=== PATIENT | male | born 1965 | race Caucasian/White ===

== ENCOUNTER 2020-05-31 09:22 | Observation (INO) | payer MEDICARE ==
[~2020-05-31] VITALS: Ht 193 cm; Wt 101.3 kg
[2020-05-31 09:44] VITALS: BP 161/117
[2020-05-31] MEDS ORDERED: [UNRECOGNIZED DRUG - CODE] PO (09:53)
[2020-05-31] MEDS ORDERED: SODIUM CHLORIDE 0.9% 1,000 ML IV SCH (10:00)
[2020-05-31] MEDS ORDERED: DIPHENHYDRAMINE 50 MG/ML, 1ML IVPush ONE (10:00)
[2020-05-31] MEDS ORDERED: ROSU20TA2 PO (10:01)
[2020-05-31] MEDS ORDERED: METF500T17 PO (10:01)
[2020-05-31] MEDS ORDERED: TELM40TA PO (10:01)
[2020-05-31] MEDS ORDERED: LORA-445 PO (10:01)
[2020-05-31] MEDS ORDERED: NITR0.4T28 SL (10:01)
[2020-05-31] MEDS ORDERED: ALBU8.5H8 INH (10:01)
[2020-05-31] MEDS ORDERED: ASPI81TA45 PO (10:01)
[2020-05-31] MEDS ORDERED: BISO5TAB8 PO (10:01)
[2020-05-31] MEDS ORDERED: CYCL10TA2 PO (10:01)
[2020-05-31] MEDS ORDERED: FENTANYL PF 100 MCG/2ML ONE (11:51)
[2020-05-31] MEDS ORDERED: HEPARIN 1,000 UNITS/ML, 10ML ONE (11:52)
[2020-05-31] MEDS ORDERED: VERAPAMIL 2.5 MG/ML, 2ML ONE (11:52)
[2020-05-31] MEDS ORDERED: LIDOCAINE-MPF 1%, 5ML ONE (11:52)
[2020-05-31] MEDS ORDERED: TICAGRELOR 90 MG TABLET ONE (11:52)
[2020-05-31] MEDS ORDERED: BIVALIRUDIN 250 MG ONE ×2 (11:52→12:20)
[2020-05-31] MEDS ORDERED: MIDAZOLAM 1 MG/ML, 5ML ONE (11:52)
[2020-05-31] MEDS ORDERED: CYCLOBENZAPRINE 10 MG TABLET PO PRN (13:00)
[2020-05-31] MEDS ORDERED: LORazepam 0.5MG TABLET PO PRN (13:00)
[2020-05-31] MEDS ORDERED: HYDROCODONE PO PRN (13:00)
[2020-05-31] MEDS ORDERED: ALBUTEROL HFA 90 MCG/SPRAY INH PRN (13:00)
[2020-05-31] MEDS ORDERED: IBUPROFEN PO PRN (13:00)
[2020-05-31] MEDS: SODIUM CHLORIDE 0.9% 1,000 ML IV SCH ×2 (13:00→20:36)
[2020-05-31] MEDS: HYDROCODONE PO PRN ×2 (15:03→20:35)
[2020-05-31] MEDS: IBUPROFEN PO PRN ×2 (15:03→20:35)
[2020-05-31 20:00] VITALS: BP 142/92
[2020-05-31] MEDS: TICAGRELOR 90 MG TABLET PO SCH (20:36)
[2020-05-31] MEDS ORDERED: TEMPLATE NON-FORMULARY MED. (Rosuvastatin Calcium** (Crestor**) 20 MG) PO SCH (21:00)
[2020-06-01] MEDS: IBUPROFEN PO PRN ×2 (01:19→09:10)
[2020-06-01] MEDS: HYDROCODONE PO PRN ×2 (01:19→09:10)
[2020-06-01 01:56] VITALS: BP 132/76
[2020-06-01] MEDS: SODIUM CHLORIDE 0.9% 1,000 ML IV SCH (05:00)
[2020-06-01 05:01] LABS: ANION GAP 5 mmol/L (5-15); CALCIUM 8.9 mg/dL (8.5-10.1); CHLORIDE 109 mmol/L (98-107); CREATININE 1.07 mg/dL (0.7-1.3)
[2020-06-01 06:40] VITALS: BP 125/75
[2020-06-01] MEDS ORDERED: TICA90TA PO (08:26)
[2020-06-01] MEDS ORDERED: TELMISARTAN 40 MG PO SCH (09:00)
[2020-06-01] MEDS ORDERED: BISOPROLOL FUMARATE 10 MG PO SCH (09:00)
[2020-06-01] MEDS ORDERED: metFORMIN 500 MG TABLET PO SCH (09:00)
[2020-06-01] MEDS ORDERED: ASPIRIN 81 MG TABLET EC PO SCH (09:00)
[2020-06-01] MEDS: TICAGRELOR 90 MG TABLET PO SCH (09:09)
== END 2020-06-01 10:15 | disposition home or self-care (01) ==
LOC: CACL 09:22 → 5SO 12:49 → CACL 22:09 → DCLOUNGE 06-01 10:06
PROVIDERS: ADMIT Internal Medicine Cardiovascular Disease; ATTEND Internal Medicine Cardiovascular Disease
DX: I20.0 Unstable angina (principal); I10 Essential (primary) hypertension; E78.2 Mixed hyperlipidemia; E11.9 Type 2 diabetes mellitus without complications; F10.10 Alcohol abuse, uncomplicated; Z79.82 Long term (current) use of aspirin; Z79.899 Other long term (current) drug therapy; Z79.84 Long term (current) use of oral hypoglycemic drugs; Z87.891 Personal history of nicotine dependence
CPT/HCPCS: 36415; 80048; 85014; 85018; 93458; 99156; 99157; C1725; C1769; C1874; C1887; C1894; C9600; G0378; J0583; J1644; J2250; J3010; Q9967

== ENCOUNTER 2020-06-07 15:38 | Emergency (ER) | payer MEDICARE ==
[~2020-06-07] VITALS: Ht 193 cm; Wt 113.0 kg
[2020-06-07] MEDS ORDERED: ASPIRIN 81 MG TABLET CHEW PO ONE (16:00)
[2020-06-07] MEDS ORDERED: ASPIRIN 81 MG TABLET CHEW ONE (16:04)
[2020-06-07 16:07] LABS: BASOPHILS % (AUTO) 1 % (0-1); EOSINOPHILS % (AUTO) 1 % (1-7); LYMPHOCYTES % (AUTO) 37 % (22-44); MEAN CORPUSCULAR HEMOGLOBIN 33.5 pg (27.5-34.5); MEAN CORPUSCULAR HGB CONC 35.9 g/dL (33.2-36.2); MEAN PLATELET VOLUME 8.8 fL (7.4-10.4); MONOCYTES % (AUTO) 10 % (2-9); NEUTROPHILS % (AUTO) 52 % (42-75); PLATELET COUNT 170 x10^3/uL (130-400); RED BLOOD COUNT 5.01 x10^6/uL (4.38-5.82); RED CELL DISTRIBUTION WIDTH 13.3 % (9.4-14.8)
[2020-06-07 16:21] LABS: ALANINE AMINOTRANSFERASE 59 U/L (12-78); ALBUMIN 4.3 g/dL (3.4-5.0); ANION GAP 7 mmol/L (5-15); CALCIUM 9.6 mg/dL (8.5-10.1); CHLORIDE 107 mmol/L (98-107); CREATININE 1.19 mg/dL (0.7-1.3)
[2020-06-07 16:25] LABS: ALKALINE PHOSPHATASE 59 U/L (45-117); BILIRUBIN,TOTAL 0.4 mg/dL (0.2-1.0); MD NO; TOTAL PROTEIN 7.8 g/dL (6.4-8.2); TROPONIN I < 0.015 ng/mL (0.000-0.045)
--- NOTE | 2020-06-07 16:50 | NUR ---
PT RESTING COMFORTABLY. VSS. MONITOR IN PLACE.
--- NOTE | 2020-06-07 17:46 | NUR ---
PT TO BR INDEPENDENTLY WITH A STEADY GAIT. UA OBTAINED.
[2020-06-07 17:50] VITALS: BP 136/95
== END 2020-06-07 18:37 | disposition home or self-care (01) ==
LOC: ED 18:31
DX: M25.511 Pain in right shoulder (principal); M79.621 Pain in right upper arm; M25.531 Pain in right wrist; M79.89 Other specified soft tissue disorders; R07.89 Other chest pain; I10 Essential (primary) hypertension; I25.10 Atherosclerotic heart disease of native coronary artery without angina pectoris; E11.9 Type 2 diabetes mellitus without complications
CPT/HCPCS: 36415; 71045; 80053; 84484; 85025; 93005; 99285

== ENCOUNTER → 2020-06-07 | Outpatient (CLI) | payer MEDICARE ==
[~2020-06-07] MED LIST: ALBU8.5H8 INH; ASPI81TA45 PO; BISO5TAB8 PO; CYCL10TA2 PO; LORA-445 PO; METF500T17 PO; NITR0.4T28 SL; ROSU20TA2 PO; TELM40TA PO; TICA90TA PO; [UNRECOGNIZED DRUG - CODE] PO
== END | disposition home or self-care (01) ==
LOC: CVU 07:49
PROVIDERS: ATTEND Registered Nurse
DX: I08.8 Other rheumatic multiple valve diseases (principal); I20.0 Unstable angina; I11.9 Hypertensive heart disease without heart failure; I25.2 Old myocardial infarction
CPT/HCPCS: 93306; 93356